=== PATIENT | female | born 1985 | race Caucasian/White ===

== ENCOUNTER 2019-12-28 12:35 | Emergency (ER) | payer SELFPAY ==
[~2019-12-28] VITALS: Ht 160 cm; Wt 59.0 kg
[2019-12-28 12:42] VITALS: BP 127/93
== END 2019-12-28 14:29 | disposition home or self-care (01) ==
LOC: ER 12:49
DX: F41.0 Panic disorder [episodic paroxysmal anxiety] (principal)
CPT/HCPCS: 71045; 81025; 93005; 99283